=== PATIENT | female | born 1965 | race Hispanic/Latino ===

== ENCOUNTER 2018-07-10 14:07 | Emergency (ER) | payer BC ==
--- NOTE | 2018-07-10 14:21 | ER ---
Nurse's Notes [facility] Name: Kinjal Jamison Age: 53 yrs Sex: Female : 1965 Arrival Date: 07/10/2018 Time: 14:03 Bed 7 Private MD: Diagnosis: Manic episode, severe with psychotic symptoms Presentation: 07/10 14:04 Presenting complaint: EMS states: pt reports having light sensitivity and a headache sg with vomiting that started yesterday but worsening today. Transition of care: patient was not received from another setting of care. Onset of symptoms was July 10, 2018. Risk Assessment: Do you want to hurt yourself or someone else? Patient reports no desire to harm self or others. Initial Sepsis Screen: Does the patient meet any 2 criteria? No. Patient's initial sepsis screen is negative. Does the patient have a suspected source of infection? No. Patient's initial sepsis screen is negative. Care prior to arrival: Medication(s) given: Normal saline infusion, 500 mL, zofran 4 mg, IV initiated. 20 GA, in the right hand. 14:04 Method Of Arrival: EMS: [facility] sg 14:04 Acuity: NANNETTE 3 sg 14:30 Acuity: NANNETTE 2 hb Historical: - Allergies: 14:08 No Known Allergies; sg - PMHx: 14:08 None; sg - PSHx: 14:08 Hysterectomy; Cyst removed from right breast; sg - Immunization history:: Adult Immunizations unknown. - Social history:: Smoking status: Patient/guardian denies using tobacco. - Ebola Screening: : Patient negative for fever greater than or equal to 101.5 degrees Fahrenheit, and additional compatible Ebola Virus Disease symptoms Patient denies exposure to infectious person Patient denies travel to an Ebola-affected area in the 21 days before illness onset No symptoms or risks identified at this time. Screenin:10 Abuse screen: Denies threats or abuse. Denies injuries from another. sg 15:20 Tuberculosis screening: unable to assess d/t pt condition at this time. sg Assessment: 14:10 General: Appears in no apparent distress. unkempt, well developed, well nourished, sg Behavior is cooperative, appropriate for age. Neuro: Level of Consciousness is awake, alert, obeys commands, Speech is normal, Facial symmetry appears normal. Cardiovascular: Capillary refill is brisk in bilateral fingers Patient's skin is warm and dry. Chest pain is denied. Respiratory: Airway is patent Respiratory effort is even, unlabored, Respiratory pattern is regular, symmetrical. GI: Abdomen is round non-distended. GI: Reports nausea, vomiting. : No signs and/or symptoms were reported regarding the genitourinary system. Derm: Skin is pink, warm \\T\\ dry. Musculoskeletal: No signs and/or symptoms reported regarding the musculoskeletal system. 14:12 Reassessment: pt reports " I just want to go home, I can see my PA tomorrow. I dont sg want to be in this hospital anymore." Desire PA at bedside to evaluate pt, pt refusing evaluation, pt requesting her IV to be removed so she can leave. IV dc'd catheter intact. pt states " Oh look at that, It takes me saying im leaving before i get any attention. Look at that, its a miracle Im healed! Whats your name?! I have a right to know. God Bless you, God bless this hospital. You'll be hearing from my tax associate attorney, you bitch!". 14:15 Reassessment: a code purple has been called. sg 14:24 Reassessment: Patient appears in no apparent distress at this time. pt escorted back to exam room by Estelle Forman RN from [facility] at this time. at bedside evaluating pt at this time. 14:37 Reassessment: Patient appears in no apparent distress at this time. pt is highly sg agitated and rambling speech at this time, flight of ideas exhibited. and Estelle RN at bedside at this time. 15:30 Reassessment: V/O obtained to administer 10 mg Haloperidol IM, see EMAR. sg 15:39 Reassessment: Patient appears in no apparent distress at this time. Neuro: Level of sg Consciousness is awake, alert, obeys commands, Speech rapid speech noted. 16:09 Reassessment: Karen from [facility] at bedside. hb 17:15 Reassessment: Resting with eyes closed. Respirations even and unlabored, skin is pink, hb warm, and dry. 17:18 Reassessment: Ziyad Jamison pt spouse ([phone]). sg 18:25 Reassessment: Pt resting with positive signs of sleep. respirations even and unlabored, hb skin is pink, warm, and dry. 18:40 Reassessment: a code purple was called, HOSSEIN TRINIDAD notified of pt with longterm warrant and sg mental health warrant is attempting to leave. 18:51 Reassessment: pt is no longer in the facility, Security reports pt had walked to [facility] before being picked up by JOSE, pt in route back to facility at this time. 19:15 Reassessment: Patient not returned at this time, PD escorted patient to be transferred lp1 to facility. Vital Signs: 14:07 BP 162 / 98; Pulse 100; Resp 17; Temp 97.6; Pulse Ox 100% on R/A; Pain 0/10; sg 16:30 BP 148 / 88; Pulse 88; Resp 16; Pulse Ox 100% on R/A; hb 18:00 BP 132 / 82; Pulse 88; Resp 16; Pulse Ox 100% on R/A; hb ED Course: 14:03 Patient arrived in ED. sg 14:04 Arm band placed on. sg 14:07 Triage completed. sg 14:10 Martell Johns PA is PHCP. cp 14:10 Fran Braxton MD is Attending Physician. cp 14:10 No provider procedures requiring assistance completed. Maintain EMS IV. Dressing sg intact. Gauge \\T\\ site: 20 G R Hand. 14:15 Safety Checks: The door is open or patient has been placed in a hallway bed/chair. sg Items have not been removed from patient due to or because: pt is not SI/HI Sitter present at this time. 14:15 Patient has correct armband on for positive identification. Placed in gown. Bed in low sg position. Side rails up X2. Pulse ox on. NIBP on. 14:20 None, None is Attending Physician. sg 14:22 Attending Physician role handed off by None, None 14:30 Safety Checks: The door is open or patient has been placed in a hallway bed/chair. sg Items have not been removed from patient due to or because: pt is not SI/HI. 14:45 Safety Checks: The door is open or patient has been placed in a hallway bed/chair. sg Items have not been removed from patient due to or because: pt is not SI/HI Sitter present at this time. 14:49 Fran Braxton MD is Attending Physician. gs 15:00 Safety Checks: The door is open or patient has been placed in a hallway bed/chair. sg Items have not been removed from patient due to or because: pt is not SI/HI Sitter present at this time. 15:15 Safety Checks: The door is open or patient has been placed in a hallway bed/chair. sg Items have not been removed from patient due to or because: pt is not SI/HI Sitter present at this time. 15:22 Estiven Pacheco, AMINATA is Primary Nurse. sg 15:22 Initial lab(s) drawn, by ED staff, sent to lab. Inserted saline lock: 20 gauge in right sg antecubital area, using aseptic technique. Blood collected. 15:30 Safety Checks: The door is open or patient has been placed in a hallway bed/chair. sg Items have not been removed from patient due to or because: pt is not SI/HI Sitter present at this time. 15:30 EKG done, by technology analyst. reviewed by Fran Braxton MD. sm3 15:45 Safety Checks: The door is open or patient has been placed in a hallway bed/chair. sg Items have not been removed from patient due to or because: pt is not SI/HI Sitter present at this time. 16:00 Safety Checks: The door is open or patient has been placed in a hallway bed/chair. sg Items have not been removed from patient due to or because: pt is not SI/HI Sitter present at this time. 16:15 Safety Checks: The door is open or patient has been placed in a hallway bed/chair. sg Items have not been removed from patient due to or because: pt is not SI/HI Sitter present at this time. 16:30 Safety Checks: The door is open or patient has been placed in a hallway bed/chair. sg Items have not been removed from patient due to or because: pt is not SI/HI Sitter present at this time. 16:45 Safety Checks: The door is open or patient has been placed in a hallway bed/chair. sg Items have not been removed from patient due to or because: pt is not SI/HI Sitter present at this time. 17:00 Safety Checks: The door is open or patient has been placed in a hallway bed/chair. sg Items have not been removed from patient due to or because: pt is not SI/HI Sitter present at this time. 17:15 Safety Checks: The door is open or patient has been placed in a hallway bed/chair. sg Items have not been removed from patient due to or because: pt is not SI/HI Sitter present at this time. 17:30 Safety Checks: The door is open or patient has been placed in a hallway bed/chair. sg Items have not been removed from patient due to or because: pt is not SI/HI Sitter present at this time. 17:45 Safety Checks: The door is open or patient has been placed in a hallway bed/chair. sg Items have not been removed from patient due to or because: pt is not SI/HI Sitter present at this time. 18:00 Safety Checks: The door is open or patient has been placed in a hallway bed/chair. sg Items have not been removed from patient due to or because: pt is not SI/HI Sitter present at this time. 18:15 Safety Checks: The door is open or patient has been placed in a hallway bed/chair. sg Items have not been removed from patient due to or because: pt is not SI/HI Sitter present at this time. 18:30 Safety Checks: The door is open or patient has been placed in a hallway bed/chair. sg Items have not been removed from patient due to or because: pt is not SI/HI Sitter present at this time. 18:45 Safety Checks: The door is open or patient has been placed in a hallway bed/chair. sg Items have not been removed from patient due to or because: pt is not SI/HI Sitter present at this time. Administered Medications: 15:30 Drug: Ativan 2 mg Route: IM; Site: right gluteus; sg 16:36 Follow up: Response: No adverse reaction; Marked relief of symptoms sg 15:30 Drug: Haloperidol Lactate 10 mg Route: IM; Site: right gluteus; sg 16:35 Follow up: Response: No adverse reaction; Marked relief of symptoms sg 16:40 Drug: Potassium Effervescent Tablet 50 mEq Route: PO; sg 18:52 Follow up: Response: No adverse reaction sg 17:36 Not Given (Patient Refused): NS 0.9% 1000 ml IV at 1 bolus Per protocol; 1000 mL bolus sg Outcome: 14:18 Eloped from patient exam room. sg 14:20 Patient left the ED. sg 17:16 Transferred Note: report given to Brina with [facility] sg 17:24 Transferred Note: Era COATES with [facility] ([place], [place]) sg 18:03 ER care complete, transfer ordered by . 19:34 Patient left the ED. lp1 Signatures: Estiven Pacheco RN RN Clementine Curry RN RN lp1 Martell Johns PA PA cp Baxter, Heather, RN RN Fran Braxton MD MD Anali Zambrano 3 Corrections: (The following items were deleted from the chart) 15:45 15:30 Haloperidol Lactate 5 mg IM in right gluteus sg sg 18:27 17:23 Reassessment: [facility]
[2018-07-10 14:27] VITALS: TEMP 97.6; O2SAT 100
[2018-07-10] MEDS ORDERED: LORazepam 2 MG/ML VIAL ONE (15:04)
[2018-07-10] MEDS ORDERED: HALOPERIDOL LACT 5 MG/ML INJ ONE (15:04)
[2018-07-10 15:39] LABS: Protime INR 1.09
[2018-07-10 15:41] LABS: Absolute Lymphocytes (CBC) 2.7 K/uL (0.7-4.9); Absolute Monocytes 0.8 K/uL (0.1-1.3); Absolute Neutrophil 6.6 K/uL (1.8-8.0); Basophils % 0.5 % (0-1.3); Eosinophils % 0.3 % (0-4.4); Hematocrit 40.6 % (36.0-45.0); Lymphocytes % 26.4 % (15.3-44.8); MCH 32.1 pg (27.0-35.0); MCV 93.2 fL (80-100); MPV 10.2 fL (7.6-11.3); Monocytes % 7.6 % (3.3-12.3); RBC Red Blood Cell Count 4.36 M/uL (3.86-4.86)
[2018-07-10 16:01] LABS: ALT/SGPT 75 U/L (12-78); AST/SGOT 53 U/L (15-37); Albumin 4.6 g/dL (3.4-5.0); Alkaline Phosphatase 107 U/L (45-117); BUN Blood Urea Nitrogen 21 mg/dL (7-18); Bicarbonate 20 mmol/L (21-32); Bilirubin Direct 0.2 mg/dL (0-0.2); Bilirubin Total 0.7 mg/dL (0.2-1.0); Glucose Level 132 mg/dL (74-106); Protein, Total 8.3 g/dL (6.4-8.2); Sodium Level 144 mmol/L (136-145)
[2018-07-10 16:25] LABS: Barbiturates NEGATIVE (NEGATIVE); Benzodiazepines NEGATIVE (NEGATIVE); Cocaine NEGATIVE (NEGATIVE); METHAMPHETAM NEGATIVE (NEGATIVE); Methadone NEGATIVE (NEGATIVE); Opiates NEGATIVE (NEGATIVE); Phencyclidine NEGATIVE (NEGATIVE); THC Cannibis NEGATIVE (NEGATIVE)
[2018-07-10 16:34] LABS: Urine Blood TRACE (NEG); Urine Glucose NEGATIVE (NEG); Urine Protein NEGATIVE (NEG); Urine Specific Gravity 1.025 (1.005-1.030); Urine pH 6.5 (5.0-7.0)
[2018-07-10] MEDS ORDERED: POTASSIUM 25 MEQ EFFERV TAB ONE (17:35)
[2018-07-10] MEDS ORDERED: NA CHLORIDE 0.9% 0 ML ONE (17:35)
--- NOTE | 2018-07-10 17:38 | EKG ---
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
--- NOTE | 2018-07-10 18:04 | EDPHYS ---
Physician Documentation [facility] Name: Kinjal Jamison Age: 53 yrs Sex: Female : 1965 Arrival Date: 07/10/2018 Time: 14:03 Bed 7 Private MD: ED Physician Fran Braxton HPI: 07/10 16:29 This 53 yrs old Female presents to ER via EMS with complaints of delusional. gs 16:29 The patient presents to the emergency department with paranoia, psychosis, has gs delusions. Onset: The symptoms/episode began/occurred 1 week(s) ago, and became worse and became persistent. Past psychiatric history: Prior diagnosis: bipolar disorder. Associated signs and symptoms: Pertinent positives; anxiety, Pertinent negatives: fever, hallucinations, homicidal ideation, suicide ideation. Severity of symptoms: At their worst the symptoms were incapacitating in the emergency department the symptoms are unchanged. The patient has experienced similar episodes in the past, several times. Historical: - Allergies: 14:08 No Known Allergies; sg - PMHx: 14:08 None; sg - PSHx: 14:08 Hysterectomy; Cyst removed from right breast; sg - Immunization history:: Adult Immunizations unknown. - Social history:: Smoking status: Patient/guardian denies using tobacco. - Ebola Screening: : Patient negative for fever greater than or equal to 101.5 degrees Fahrenheit, and additional compatible Ebola Virus Disease symptoms Patient denies exposure to infectious person Patient denies travel to an Ebola-affected area in the 21 days before illness onset No symptoms or risks identified at this time. ROS: 16:29 All other systems are negative. gs Exam: 16:29 Head/Face: Normocephalic, atraumatic. Eyes: Pupils equal round and reactive to light, gs extra-ocular motions intact. Lids and lashes normal. Conjunctiva and sclera are non-icteric and not injected. Cornea within normal limits. Periorbital areas with no swelling, redness, or edema. ENT: Nares patent. No nasal discharge, no septal abnormalities noted. Tympanic membranes are normal and external auditory canals are clear. Oropharynx with no redness, swelling, or masses, exudates, or evidence of obstruction, uvula midline. Mucous membranes moist. Neck: Trachea midline, no thyromegaly or masses palpated, and no cervical lymphadenopathy. Supple, full range of motion without nuchal rigidity, or vertebral point tenderness. No Meningismus. Chest/axilla: Normal chest wall appearance and motion. Nontender with no deformity. No lesions are appreciated. 16:29 Respiratory: Lungs have equal breath sounds bilaterally, clear to auscultation and percussion. No rales, rhonchi or wheezes noted. No increased work of breathing, no retractions or nasal flaring. Abdomen/GI: Soft, non-tender, with normal bowel sounds. No distension or tympany. No guarding or rebound. No evidence of tenderness throughout. Back: No spinal tenderness. No costovertebral tenderness. Full range of motion. Skin: Warm, dry with normal turgor. Normal color with no rashes, no lesions, and no evidence of cellulitis. MS/ Extremity: Pulses equal, no cyanosis. Neurovascular intact. Full, normal range of motion. 16:29 Constitutional: The patient appears alert, awake. 16:29 Cardiovascular: Rate: tachycardic, Rhythm: regular. 16:29 ECG was reviewed by the Attending Physician. 16:29 Neuro: Orientation: to person, place, time \T\ situation. Cranial nerves: CN II- XII are normal as tested, Cerebellar function: is grossly normal, Motor: is normal, Sensation: is normal. 16:29 Psych: Behavior/mood is anxious, aggressive, delirious, Affect is animated, Oriented to person, place, time, Patient has no thoughts/intents to harm self or others. Judgement / Insight is impaired. Delusions/hallucinations are present and described as grandiose, tangential, . Vital Signs: 14:07 BP 162 / 98; Pulse 100; Resp 17; Temp 97.6; Pulse Ox 100% on R/A; Pain 0/10; sg 16:30 BP 148 / 88; Pulse 88; Resp 16; Pulse Ox 100% on R/A; hb 18:00 BP 132 / 82; Pulse 88; Resp 16; Pulse Ox 100% on R/A; hb MDM: 14:10 Patient medically screened. cp 16:29 Differential diagnosis: acute psychotic break. Data reviewed: vital signs, nurses gs notes. Response to treatment: the patient's symptoms have markedly improved after treatment. 07/10 14:53 Order name: Acetaminophen; Complete Time: 16:33 gs 07/10 14:53 Order name: Basic Metabolic Panel; Complete Time: 16:33 07/10 14:53 Order name: CBC with Diff; Complete Time: 16:33 07/10 14:53 Order name: ETOH Level; Complete Time: 16:33 07/10 14:53 Order name: Hepatic Function; Complete Time: 16:33 07/10 14:53 Order name: PT-INR; Complete Time: 16:33 07/10 14:53 Order name: Salicylate; Complete Time: 16:33 07/10 14:53 Order name: Urine Drug Screen; Complete Time: 16:33 07/10 16:18 Order name: Urine Dipstick--Ancillary (enter results); Complete Time: 17:03 07/10 16:18 Order name: Urine --Ancillary (enter results); Complete Time: 17:03 07/10 16:34 Order name: Magnesium; Complete Time: 17:03 07/10 14:53 Order name: EKG; Complete Time: 14:54 07/10 14:53 Order name: IV Saline Lock; Complete Time: 15:27 07/10 14:53 Order name: Labs collected and sent; Complete Time: 15:27 gs EC:29 Rate is 108 beats/min. Rhythm is regular. KS interval is normal. QRS interval is gs normal. T waves are Normal. No ST changes noted. Clinical impression: Abnormal EKG without significant change. Interpreted by me. Administered Medications: 15:30 Drug: Ativan 2 mg Route: IM; Site: right gluteus; sg 16:36 Follow up: Response: No adverse reaction; Marked relief of symptoms sg 15:30 Drug: Haloperidol Lactate 10 mg Route: IM; Site: right gluteus; sg 16:35 Follow up: Response: No adverse reaction; Marked relief of symptoms sg 16:40 Drug: Potassium Effervescent Tablet 50 mEq Route: PO; sg 18:52 Follow up: Response: No adverse reaction sg 17:36 Not Given (Patient Refused): NS 0.9% 1000 ml IV at 1 bolus Per protocol; 1000 mL bolus sg Disposition: 07/10/18 18:03 Transfer ordered to [facility]. Diagnosis is Manic episode, severe with psychotic symptoms. - Reason for transfer: Higher level of care. - Accepting physician is . - Condition is Stable. - Problem is an acute exacerbation. - Symptoms have improved. Signatures: Dispatcher [employer] EDEstiven Gamble RN RN sg Clementine Curry RN RN lp1 Martell Johns PA PA cp Starr, Gregory, MD MD gs Corrections: (The following items were deleted from the chart) 14:28 14:20 07/10/2018 14:20 Patient left the facility after being seen by provider. Reason sg stated they are leaving due to (see nurse's notes). 19:34 18:03 07/10/2018 18:03 Transfer ordered to [facility]. Diagnosis is Manic episode, lp1 severe with psychotic symptoms. Reason for transfer: Higher level of care. Accepting physician is . Condition is Stable. Problem is an acute exacerbation. Symptoms have improved. gs
[2018-07-10 19:40] VITALS: BP 132/82
== END 2018-07-10 19:34 ==
LOC: ER 14:07
DX: F30.2 Manic episode, severe with psychotic symptoms (principal); F31.9 Bipolar disorder, unspecified
CPT/HCPCS: 36415; 80048; 80076; 80307; 80320; 80329; 81003; 81025; 83735; 85025; 85610; 93005; 96372; 99285; J1630; J7030

== ENCOUNTER 2021-02-04 17:02 | Emergency (ER) | payer BC ==
--- OUTSIDE RECORDS SUMMARY | 2021-02-04 17:04 | XMS REPORT | Continuity of Care Document ---
:1965 Author Organization [facility] t Address [address] [place] [address] Dr. Quiles [address] [place] [id number] Care Team Providers Name Role Phone Unavailable Unavailable Unavailable Problems This patient has no known problems. Allergies, Adverse Reactions, Alerts This patient has no known allergies or adverse reactions. Medications This patient has no known medications. Procedures This patient has no known procedures. Results This patient has no known results.
[2021-02-04 17:29] LABS: Absolute Lymphocytes (CBC) 2.8 K/uL (0.7-4.9); Basophils % 1.2 % (0-1.3); Hematocrit 39.9 % (36.0-45.0); Lymphocytes % 30.6 % (15.3-44.8); RBC Red Blood Cell Count 4.31 M/uL (3.86-4.86)
[2021-02-04] MEDS ORDERED: ONDANSETRON 4 MG/2 ML VIAL ONE ×2 (17:36→19:37)
[2021-02-04] MEDS ORDERED: FENTANYL CITR 100 MCG/2 ML ONE (17:36)
[2021-02-04 17:46] LABS: Albumin 4.3 g/dL (3.4-5.0); Bilirubin Direct 0.1 mg/dL (0-0.2); Bilirubin Total 0.4 mg/dL (0.2-1.0); Potassium 3.1 mmol/L (3.5-5.1)
[2021-02-04] MEDS ORDERED: HYDROMORPHONE HCL 1 MG/ML INJ ONE (17:49)
--- NOTE | 2021-02-04 18:31 | RAD REPORT ---
EXAM DESCRIPTION: CTAbdomen Pelvis W Contrast - 02/04/2021 6:24 pm CLINICAL HISTORY: Abdominal pain. ABD PAIN COMPARISON: No comparisons TECHNIQUE: Biphasic CT imaging of the abdomen and pelvis was performed with 100 ml non-ionic IV cont rast. All CT scans are performed using dose optimization technique as appropriate and may include automated exposure control or mA/KV adjustment according to patient size. FINDINGS: Mild dependent atelectasis is seen in both posterior lung bases. The liver demonstrates diffuse fatty infiltration. Cholecystectomy clips. Spleen, pancreas, right adr enal gland and kidneys are within normal limits. 14 mm nodule is present left adrenal gland. No bowel obstruction, free air, free fluid or abscess. The appendix is normal. No evidence of signi ficant lymphadenopathy. Moderate lumbar degenerative changes are present. IMPRESSION: No acute intra-abdominal or pelvic finding.
[2021-02-04] MEDS ORDERED: NA CHLORIDE 0.9% 1,000 ML ONE (19:04)
[2021-02-04] MEDS ORDERED: POTASSIUM 25 MEQ EFFERV TAB ONE ×2 (19:04→19:37)
[2021-02-04] MEDS ORDERED: KCL 20 MEQ/100 mL IVPB 20 MEQ/100 ML BAG IV ONE (19:04)
--- NOTE | 2021-02-04 19:15 | ER ---
Nurse's Notes [facility] Name: Kinjal Jamison Age: 55 yrs Sex: Female : 1965 Arrival Date: 02/04/2021 Time: 17:03 Bed 5 Private MD: Diagnosis: Unspecified abdominal pain Presentation: 02/04 17:09 Chief complaint: EMS states: called out for abdominal pain that has been there for 7 em months, pt reports having lower abdominal pressure as in labor, pt has had a hysterectomy, pt also reports clear vagina discharge, denies burning with urination or fever, 20 G RAC, Zofran 4 mg and Toradol 30 mg given IV. Coronavirus screen: Client denies travel out of the [place] in the last 14 days. Ebola Screen: Patient negative for fever greater than or equal to 101.5 degrees Fahrenheit, and additional compatible Ebola Virus Disease symptoms Patient denies exposure to infectious person. Patient denies travel to an Ebola-affected area in the 21 days before illness onset. No symptoms or risks identified at this time. Initial Sepsis Screen: Does the patient meet any 2 criteria? HR > 90 bpm. No. Patient's initial sepsis screen is negative. Does the patient have a suspected source of infection? No. Patient's initial sepsis screen is negative. Risk Assessment: Do you want to hurt yourself or someone else? Patient reports no desire to harm self or others. Onset of symptoms was February 04, 2021. 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 - Social history:: Smoking status: Patient denies any tobacco usage or history of. Screenin:13 Abuse screen: Denies threats or abuse. Nutritional screening: No deficits noted. em Tuberculosis screening: No symptoms or risk factors identified. Fall Risk None identified. Assessment: 17:15 General: Appears in no apparent distress. uncomfortable, Behavior is calm, cooperative, em Denies fever, chills. Pain: Complains of pain in right lower quadrant and left lower quadrant Pain currently is 9 out of 10 on a pain scale. Neuro: Level of Consciousness is awake, alert, obeys commands, Oriented to person, place, time, situation. Cardiovascular: Capillary refill < 3 seconds Patient's skin is warm and dry. Respiratory: Airway is patent Respiratory effort is Respiratory pattern is regular, symmetrical. GI: Abdomen is flat, Reports nausea, vomiting, Patient currently denies diarrhea. : Reports discharge, clear discharge that has been there for 1-2 weeks. Derm: Skin is intact, is healthy with good turgor, Skin is pink, warm \T\ dry. Musculoskeletal: Capillary refill < 3 seconds, Range of motion: intact in all extremities. 18:36 Reassessment: Patient appears in no apparent distress at this time. Patient and/or hb family updated on plan of care and expected duration. Pain level reassessed. Patient is alert, oriented x 3, equal unlabored respirations, skin warm/dry/pink. 19:00 Reassessment: Patient appears in no apparent distress at this time. Patient and/or jb4 family updated on plan of care and expected duration. Pain level reassessed. Patient is alert, oriented x 3, equal unlabored respirations, skin warm/dry/pink. 19:49 Reassessment: Pt no longer vomiting, reports feeling much better. Tolerated drinking PO jb4 Potassium. Verbalized understanding of d/c and follow up instructions. Denies questions or concerns. Assisted pt to significant others vehicle via wheel chair. Vital Signs: 17:09 Pulse 100; Resp 18; Temp 97.4; Pulse Ox 100% on R/A; Weight 72.57 kg; Height 5 ft. 4 em in. (162.56 cm); 17:15 BP 160 / 109; em 18:30 BP 155 / 91; Pulse 63; Resp 15; Pulse Ox 100% on R/A; hb 19:49 BP 160 / 78; Pulse 74; Resp 18; Pulse Ox 100% on R/A; jb4 17:09 Body Mass Index 27.46 (72.57 kg, 162.56 cm) em ED Course: 17:03 Patient arrived in ED. ds1 17:04 Martell Johns PA is PHCP. cp 17:04 Martell Rajan MD is Attending Physician. cp 17:12 Triage completed. em 17:13 Arm band placed on. em 17:13 Patient has correct armband on for positive identification. Pulse ox on. NIBP on. em 17:13 Maintain EMS IV. Dressing intact. Good blood return noted. Site clean \T\ dry. Gauge \T\ em site: 20 RAC. 17:30 Beka Mendiola, RN is Primary Nurse. em 18:24 CT Abd/Pelvis - IV Contrast Only In Process Unspecified. EDMS 19:15 Primary Nurse role handed off by Beka Mendiola RN eb 19:49 No provider procedures requiring assistance completed. IV discontinued, intact, jb4 bleeding controlled, No redness/swelling at site. Pressure dressing applied. Administered Medications: Discontinued: NS 0.9% 1000 ml IV at 1 bolus Per protocol; 1000 mL bolus Discontinued: Potassium Chloride 20 mEq IV at calculated rate once; administer over 1-2 hours 09:38 Drug: Potassium Effervescent Tablet 50 mEq Route: PO; jb4 17:24 Drug: fentaNYL (PF) 25 mcg Route: IVP; Site: right antecubital; hb 18:00 Follow up: Response: No adverse reaction hb 17:26 Drug: Zofran (Ondansetron) 4 mg Route: IVP; Site: right antecubital; hb 18:00 Follow up: Response: No adverse reaction hb 17:32 Drug: Dilaudid (HYDROmorphone) 1 mg Route: IVP; Site: right antecubital; hb 18:15 Follow up: Response: No adverse reaction hb 18:30 Drug: NS 0.9% 1000 ml Route: IV; Rate: 1 bolus; Site: right antecubital; hb 19:40 Follow up: Response: No adverse reaction; IV Status: Order to discontinue infusion; IV jb4 Intake: 250ml 18:52 Drug: Potassium Chloride 20 mEq Route: IV; Rate: calculated rate; Site: right hb antecubital; 18:53 Drug: Potassium Effervescent Tablet 50 mEq Route: PO; hb 19:21 Drug: Zofran (Ondansetron) 4 mg Route: IVP; Site: right antecubital; ea Intake: 19:40 IV: 250ml; Total: 250ml. jb4 Outcome: 19:15 Discharge ordered by cp 19:49 Discharged to home via wheelchair, with significant other. jb4 19:49 Condition: stable 19:49 Discharge instructions given to patient, significant other, Instructed on discharge instructions, follow up and referral plans. medication usage, Demonstrated understanding of instructions, follow-up care, medications, Prescriptions given X 2. 19:50 Patient left the ED. jb4 Signatures: Dispatcher [employer] EDBeka Neal, RN RN Annetta Johnson ds1 Martell Johns PA PA cp Baxter, Heather, RN RN hb Bryson, James, RN RN jb4 Carmen Fernandes RN RN ea Botello, Elizabeth eb Corrections: (The following items were deleted from the chart) 18:40 18:30 Pulse 63bpm; Resp 15bpm; Pulse Ox 100% RA; hb hb
--- NOTE | 2021-02-04 19:15 | EDPHYS ---
Physician Documentation [facility] Name: Kinjal Jamison Age: 55 yrs Sex: Female : 1965 Arrival Date: 02/04/2021 Time: 17:03 Bed 5 Private MD: ED Physician Martell Rajan HPI: 02/04 17:15 This 55 yrs old Female presents to ER via EMS with complaints of Abdominal cp Pain. 17:15 The patient presents with abdominal pain that is diffuse. Onset: The symptoms/episode cp began/occurred waxing and waning times 7 months, became worse today. The symptoms do not radiate. Associated signs and symptoms: Pertinent positives: vomiting, Pertinent negatives: blood in stools, chest pain, constipation, diarrhea. 17:15 The symptoms are described as constant. 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 - Social history:: Smoking status: Patient denies any tobacco usage or history of. ROS: 17:20 Abdomen/GI: Positive for abdominal pain, nausea, vomiting, Negative for diarrhea, cp constipation. 17:20 Eyes: Negative for injury, pain, redness, and discharge. cp 17:20 Constitutional: Negative for fever. 17:20 ENT: Negative for ear pain, sore throat, difficulty swallowing, difficulty handling secretions. 17:20 Cardiovascular: Negative for chest pain. 17:20 Respiratory: Negative for cough, shortness of breath, wheezing. 17:20 Back: Negative for radiated pain. 17:20 Neuro: Negative for headache, weakness. 17:20 All other systems are negative. Exam: 17:25 Constitutional: The patient appears in no acute distress, alert, awake, non-toxic, well cp developed, well nourished, uncomfortable. 17:25 Head/Face: Normocephalic, atraumatic. cp Vital Signs: 17:09 Pulse 100; Resp 18; Temp 97.4; Pulse Ox 100% on R/A; Weight 72.57 kg; Height 5 ft. 4 em in. (162.56 cm); 17:15 BP 160 / 109; em 18:30 BP 155 / 91; Pulse 63; Resp 15; Pulse Ox 100% on R/A; hb 19:49 BP 160 / 78; Pulse 74; Resp 18; Pulse Ox 100% on R/A; jb4 17:09 Body Mass Index 27.46 (72.57 kg, 162.56 cm) em MDM: 17:08 Patient medically screened. cp 19:15 Data reviewed: vital signs, nurses notes, lab test result(s), radiologic studies, CT cp scan. 19:15 Counseling: I had a detailed discussion with the patient and/or guardian regarding: the cp historical points, exam findings, and any diagnostic results supporting the discharge/admit diagnosis, lab results, radiology results, to return to the emergency department if symptoms worsen or persist or if there are any questions or concerns that arise at home. Response to treatment: the patient's symptoms have markedly improved after treatment, and as a result, I will discharge patient. 02/04 17:09 Order name: Basic Metabolic Panel; Complete Time: 18:33 cp 02/04 18:33 Interpretation: Normal except: K 3.1; CL 110; GLUC 122; BUN 24; GFR 54. cp 02/04 17:09 Order name: CBC with Diff; Complete Time: 18:33 cp 02/04 17:09 Order name: Hepatic Function; Complete Time: 18:33 cp 02/04 17:09 Order name: Lipase; Complete Time: 18:33 cp 02/04 17:32 Order name: CT Abd/Pelvis - IV Contrast Only; Complete Time: 18:33 cp 02/04 17:09 Order name: IV Saline Lock; Complete Time: 17:26 cp 02/04 17:09 Order name: Labs collected and sent; Complete Time: 17:27 cp Administered Medications: Discontinued: NS 0.9% 1000 ml IV at 1 bolus Per protocol; 1000 mL bolus Discontinued: Potassium Chloride 20 mEq IV at calculated rate once; administer over 1-2 hours 09:38 Drug: Potassium Effervescent Tablet 50 mEq Route: PO; jb4 17:24 Drug: fentaNYL (PF) 25 mcg Route: IVP; Site: right antecubital; hb 18:00 Follow up: Response: No adverse reaction hb 17:26 Drug: Zofran (Ondansetron) 4 mg Route: IVP; Site: right antecubital; hb 18:00 Follow up: Response: No adverse reaction hb 17:32 Drug: Dilaudid (HYDROmorphone) 1 mg Route: IVP; Site: right antecubital; hb 18:15 Follow up: Response: No adverse reaction hb 18:30 Drug: NS 0.9% 1000 ml Route: IV; Rate: 1 bolus; Site: right antecubital; hb 19:40 Follow up: Response: No adverse reaction; IV Status: Order to discontinue infusion; IV jb4 Intake: 250ml 18:52 Drug: Potassium Chloride 20 mEq Route: IV; Rate: calculated rate; Site: right hb antecubital; 18:53 Drug: Potassium Effervescent Tablet 50 mEq Route: PO; hb 19:21 Drug: Zofran (Ondansetron) 4 mg Route: IVP; Site: right antecubital; ea Disposition: 02/04/21 19:15 Discharged to Home. Impression: Unspecified abdominal pain. - Condition is Stable. - Discharge Instructions: Abdominal Pain, Adult, Nausea and Vomiting, Adult. - Prescriptions for Bentyl 20 mg Oral Tablet - take 2 tablets by ORAL route every 6 hours As needed; 30 tablet. Zofran 4 mg Oral Tablet - take 1 tablet by ORAL route every 12 hours As needed; 20 tablet. - Medication Reconciliation Form, Thank You Letter, Antibiotic Education, Prescription Opioid Use form. - Follow up: Private Physician; When: 1 - 2 days; Reason: Recheck today's complaints. - Problem is new. - Symptoms have improved. Addendum: 02/07/2021 09:32 Co-signature as Attending Physician, Martell Rajan MD I agree with the assessment and c tierney plan of care. Signatures: Dispatcher [employer] Martell Mejia MD MD cha Munoz, Edgar RN RN Martell Andrade PA PA cp Baxter, Heather, RN RN hb Bryson, James, RN RN jbCarmen Kong RN RN ea Corrections: (The following items were deleted from the chart) 02/04 19:50 19:15 02/04/2021 19:15 Discharged to Home. Impression: Unspecified abdominal pain. jb4 Condition is Stable. Forms are Medication Reconciliation Form, Thank You Letter, Antibiotic Education, Prescription Opioid Use. Follow up: Private Physician; When: 1 - 2 days; Reason: Recheck today's complaints. Problem is new. Symptoms have improved. cp
[2021-02-04 20:06] VITALS: TEMP 97.4; O2SAT 100
[2021-02-04 20:10] VITALS: BP 160/78
== END 2021-02-04 19:50 | disposition home or self-care (01) ==
LOC: ER 17:02
DX: R10.9 Unspecified abdominal pain (principal)
CPT/HCPCS: 96361; 85025; 80048; 36415; 80076; 83690; 74177; 96375; 96374; 99284; Q9967; J3480; J3010; J1170; J7030; J2405 ×2

== ENCOUNTER 2021-02-05 15:16 | Emergency (ER) | payer BC ==
--- OUTSIDE RECORDS SUMMARY | 2021-02-05 15:19 | XMS REPORT | Continuity of Care Document ---
:1965 Author Organization [facility] t Address [address] [place] [address] Dr. Quiles [address] [place] [id number] Care Team Providers Name Role Phone Unavailable Unavailable Unavailable Problems This patient has no known problems. Allergies, Adverse Reactions, Alerts This patient has no known allergies or adverse reactions. Medications This patient has no known medications. Procedures This patient has no known procedures. Results This patient has no known results.
[2021-02-05 16:04] LABS: Urine Blood Trace-intact (Negative); Urine Glucose Negative (Negative); Urine Protein Trace (Negative)
[2021-02-05 16:20] LABS: Barbiturates NEGATIVE (NEGATIVE); Benzodiazepines NEGATIVE (NEGATIVE); Cocaine NEGATIVE (NEGATIVE); METHAMPHETAM NEGATIVE (NEGATIVE); Methadone NEGATIVE (NEGATIVE); Opiates NEGATIVE (NEGATIVE); Phencyclidine NEGATIVE (NEGATIVE); THC Cannibis NEGATIVE (NEGATIVE)
[2021-02-05 16:24] LABS: Absolute Lymphocytes (CBC) 2.3 K/uL (0.7-4.9); Basophils % 0.3 % (0-1.3); Hematocrit 41.3 % (36.0-45.0); Lymphocytes % 26.4 % (15.3-44.8); MPV 10.2 fL (7.6-11.3); RBC Red Blood Cell Count 4.45 M/uL (3.86-4.86)
[2021-02-05 16:35] LABS: Protime INR 1.04
[2021-02-05 16:48] LABS: ALT/SGPT 64 U/L (12-78); AST/SGOT 32 U/L (15-37); Albumin 4.7 g/dL (3.4-5.0); Alkaline Phosphatase 110 U/L (45-117); BUN Blood Urea Nitrogen 22 mg/dL (7-18); Bicarbonate 26 mmol/L (21-32); Bilirubin Direct 0.1 mg/dL (0-0.2); Bilirubin Total 0.5 mg/dL (0.2-1.0); Glucose Level 122 mg/dL (74-106); Potassium 3.2 mmol/L (3.5-5.1); Protein, Total 8.5 g/dL (6.4-8.2); Sodium Level 143 mmol/L (136-145)
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
--- NOTE | 2021-02-05 17:09 | EDPHYS ---
Physician Documentation [facility] Name: Kinjal Jamison Age: 55 yrs Sex: Female : 1965 Arrival Date: 02/05/2021 Time: 15:17 Bed 7 Private MD: ED Physician Martell Rajan HPI: 02/04 15:49 This 55 yrs old Female presents to ER via EMS with complaints of Mental pm1 Evaluation. 02/05 16:56 The patient presents to the emergency department with suicide ideation, but the patient pm1 has no formulated plan. Onset: The symptoms/episode began/occurred today. Past psychiatric history: Prior diagnosis: bipolar disorder, psychosis, Psychiatric medications include: Effexor, seroquel, Primary psychiatric physician: the patient has a previous inpatient psychiatric history, 2 years ago for psychosis. Associated signs and symptoms: Pertinent positives; paranoia, suicide ideation, Pertinent negatives: chest pain, hallucinations, homicidal ideation, shortness of breath, substance abuse. Severity of symptoms: in the emergency department the symptoms are worse. The patient has experienced similar episodes in the past, a few times. Contacted her psychiatrist last week for the same complaint and was prescribed Seroquel. 16:56 Patient reports that she has not been taking her medications as prescribed because of pm1 nausea and vomiting for the past 7 months. 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 - Social history:: Smoking status: Patient denies any tobacco usage or history of. ROS: 16:56 Constitutional: Negative for fever, chills, and weight loss, Eyes: Negative for injury, pm1 pain, redness, and discharge, ENT: Negative for injury, pain, and discharge, Neck: Negative for injury, pain, and swelling, Cardiovascular: Negative for chest pain, palpitations, and edema, Respiratory: Negative for shortness of breath, cough, wheezing, and pleuritic chest pain, Back: Negative for injury and pain, MS/Extremity: Negative for injury and deformity, Skin: Negative for injury, rash, and discoloration. 16:56 Neuro: Negative for headache, weakness, numbness, tingling, and seizure. 16:56 Abdomen/GI: Positive for abdominal pain, nausea and vomiting, ongoing for the past 7 months that was evaluated yesterday in the ER. Exam: 16:56 Constitutional: This is a well developed, well nourished patient who is awake, alert, pm1 and in no acute distress. Head/Face: Normocephalic, atraumatic. 16:56 Skin: Warm, dry with normal turgor. Normal color with no rashes, no lesions, and no evidence of cellulitis. MS/ Extremity: Pulses equal, no cyanosis. Neurovascular intact. Full, normal range of motion. 16:56 Eyes: Exam is negative for acute changes, Periorbital structures: appear normal, Pupils: no acute changes, Extraocular movements: no acute changes. 16:56 ENT: External ear(s): are unremarkable, Ear canal(s): are normal, TM's: are normal, Posterior pharynx: is normal, airway is patent, no acute changes. 16:56 Cardiovascular: Exam negative for acute changes, Rate: normal, Rhythm: regular, Pulses: no pulse deficits are appreciated, Edema: is not appreciated. 16:56 Respiratory: Exam negative for acute changes, respiratory distress, shortness of breath, Breath sounds: are clear throughout. 16:56 Abdomen/GI: Exam negative for acute changes, Inspection: abdomen appears normal, Palpation: abdomen is soft and non-tender, in all quadrants. 16:56 Neuro: Orientation: is normal, Mentation: is normal, Motor: is normal, moves all fours. 16:56 Psych: Behavior/mood is cooperative, Affect is animated, Oriented to person, place, time, Delusions/hallucinations are not present. Vital Signs: 15:26 BP 145 / 103; Pulse 104; Resp 20; Temp 97.8; Pulse Ox 99% on R/A; Weight 72.57 kg; em Height 5 ft. 4 in. (162.56 cm); Pain 0/10; 16:16 BP 144 / 114; Pulse 93; Resp 14; Pulse Ox 100% ; sv 17:00 BP 131 / 96; Pulse 82; Resp 16; Pulse Ox 100% ; sv 15:26 Body Mass Index 27.46 (72.57 kg, 162.56 cm) em MDM: 15:39 Patient medically screened. pm1 17:08 Data reviewed: vital signs. Data interpreted: Pulse oximetry: on room air is 100 %. pm1 Interpretation: normal. 17:08 Counseling: I had a detailed discussion with the patient and/or guardian regarding: the pm1 historical points, exam findings, and any diagnostic results supporting the discharge/admit diagnosis, lab results, the need to transfer to another facility, [facility] does not immediately have the required specialist. 02/05 15:39 Order name: Acetaminophen pm1 02/05 15:39 Order name: Basic Metabolic Panel pm1 02/05 15:39 Order name: CBC with Diff pm1 02/05 15:39 Order name: ETOH Level pm1 02/05 15:39 Order name: Hepatic Function pm1 02/05 15:39 Order name: PT-INR; Complete Time: 16:54 pm1 02/05 15:39 Order name: Ptt, Activated; Complete Time: 16:54 pm1 02/05 15:39 Order name: Salicylate; Complete Time: 16:55 pm1 02/05 15:39 Order name: Urine Drug Screen; Complete Time: 16:39 pm1 02/05 15:40 Order name: Acetaminophen Level; Complete Time: 16:54 EDMS 02/05 15:40 Order name: Basic Metabolic Panel; Complete Time: 16:54 EDMS 02/05 15:40 Order name: CBC with Automated Diff; Complete Time: 16:39 EDMS 02/05 15:40 Order name: Alcohol Serum/Plasma; Complete Time: 16:54 EDMS 02/05 15:40 Order name: Liver (Hepatic) Function; Complete Time: 16:54 EDMS 02/05 15:39 Order name: Urine Test (obtain specimen); Complete Time: 16:14 pm1 02/05 15:39 Order name: EKG; Complete Time: 15:40 pm1 02/05 15:39 Order name: EKG - Nurse/Tech; Complete Time: 16:50 pm1 02/05 15:39 Order name: IV Saline Lock; Complete Time: 16:14 pm1 02/05 15:39 Order name: Labs collected and sent; Complete Time: 16:15 pm1 02/05 15:39 Order name: Urine Dipstick-Ancillary (obtain specimen); Complete Time: 16:15 pm1 02/05 16:03 Order name: Urine Dipstick-Ancillary; Complete Time: 16:16 EDMS 02/05 16:04 Order name: Urine --Ancillary (enter results); Complete Time: 16:16 eb 02/05 17:04 Order name: COVID-19 : Document "Date of Symptom Onset" if Symptomatic. em 02/05 18:18 Order name: SARS-COV-2 RT PCR; Complete Time: 18:24 EDMS Administered Medications: 17:27 Drug: Potassium Effervescent Tablet 50 mEq Route: PO; sv 17:43 Follow up: Response: No adverse reaction sv 17:28 Drug: NS 0.9% 1000 ml Route: IV; Rate: 1000 ml; Site: right antecubital; sv Disposition: 02/05/21 17:09 Transfer ordered to Psych Facility. Diagnosis is Suicidal ideations. - Reason for transfer: Higher level of care. - Accepting physician is . - Condition is Stable. - Problem is new. - Symptoms are unchanged. Addendum: 02/07/2021 09:48 Co-signature as Attending Physician, Martell Rajan MD I agree with the assessment and c tierney plan of care. Signatures: Dispatcher [employer] EDRadha Wong RN RN sv Anderson, Corey, MD MD cha Munoz, Edgar, RN RN em Avery Ferrari, SAM DRY CLEANING MACHINE OPERATOR 1 Carmen Fernandes RN RN ea Corrections: (The following items were deleted from the chart) 02/05 16:15 15:39 Suicide Precautions ordered. pm1 sv 16:15 15:39 Suicide Screening ([place]) ordered. pm1 17:25 17:04 CORONAVIRUS ordered. EDUT EDMS 20:08 17:09 02/05/2021 17:09 Transfer ordered to Psych Facility. Diagnosis is Suicidal ea ideations. Reason for transfer: Higher level of care. Accepting physician is . Condition is Stable. Problem is new. Symptoms are unchanged. pm1
[2021-02-05] MEDS ORDERED: POTASSIUM 25 MEQ EFFERV TAB ONE (17:25)
[2021-02-05] MEDS ORDERED: NA CHLORIDE 0.9% 1,000 ML ONE (17:25)
[2021-02-05 20:26] VITALS: TEMP 97.8
[2021-02-05 20:28] VITALS: O2SAT 100
[2021-02-05 20:29] VITALS: BP 131/96
--- NOTE | 2021-02-06 12:13 | EKG ---
Test Date: 2021-02-05 Test Time: 16:52:12 Physician Specialist: NEERAJ MEASUREMENT RESULTS: Intervals: Rate: 72 VT: 154 QRSD: 78 QT: 390 QTc: 427 [place]: P: 48 VT: 154 QRS: 51 T: 46 INTERPRETIVE STATEMENTS: Normal sinus rhythm Cannot rule out Anterior infarct, age undetermined Abnormal ECG Compared to ECG 07/10/2018 15:23:05 Myocardial infarct finding now present Sinus tachycardia no longer present Electronically Signed On 02-06-21 12:11:54 CDT by Alan Eastman
== END 2021-02-05 20:08 ==
LOC: ER 15:16
DX: R45.851 Suicidal ideations (principal); Z20.822 Contact with and (suspected) exposure to COVID-19
CPT/HCPCS: 93005; 85025; 80048; 36415; 80320; 80329 ×2; 81025; 85610; 80076; 80307 ×8; 85730; 81003; 99285; U0003; J7030